=== PATIENT | male | born 1980 | race Caucasian/White ===

== ENCOUNTER 2018-06-26 07:30 | Inpatient (IN) ==
[2018-06-26] MEDS ORDERED: Metoprolol Tartrate 25 MG Tablet PO SCH (09:30)
[2018-06-26] MEDS ORDERED: Chlorhexidine Gluconate 2% 1 Pack (2 Cloths) TOPICAL SCH (09:30)
[2018-06-26] MEDS ORDERED: Chlorhexidine 4% Topical 120 APPLIC/120 ML Bottle TOPICAL SCH (09:45)
[2018-06-26] MEDS ORDERED: Sodium Chlor 0.9% Inj 500 ML IV.SIG SCH (10:00)
[2018-06-26] MEDS ORDERED: Dexmedetomidine Inj 200 MCG/2 ML Vial ONE ×2 (11:52→12:02)
[2018-06-26] MEDS ORDERED: Propofol Inj 500 MG/50 ML Vial ONE ×2 (11:53→12:01)
[2018-06-26] MEDS ORDERED: Phenylephrine/NS 1000 MCG/10ML Syringe IV.PUSH ONE (12:00)
[2018-06-26] MEDS ORDERED: Lidocaine 1%/Epinephrine 1:100,000 Inj 20 ML Vial ONE (12:04)
[2018-06-26] MEDS ORDERED: Sodium Chlor 0.9% Inj 50 ML ONE (12:09)
[2018-06-26] MEDS ORDERED: Sodium Chlor 0.9% Inj 100 ML ONE (12:12)
[2018-06-26] MEDS ORDERED: Sodium Chlor 0.9% Inj 250 ML ONE (12:37)
[2018-06-26] MEDS ORDERED: Betamethasone Sod Phos/Acetate Inj 30 MG/5 ML Vial IM ONE (13:06)
[2018-06-26] MEDS ORDERED: Gelatin Size 100 Topical Foam ONE (13:06)
[2018-06-26] MEDS ORDERED: Bupivacaine/Epinephrine Inj 0.25% 50 ML Vial ONE (13:07)
--- NOTE | 2018-06-26 13:28 | P.OP ---
- Preoperative Diagnosis (1) Hypospadias, balanic (2) Meatal stenosis - Postoperative Diagnosis (1) Hypospadias, balanic (2) Meatal stenosis Date of procedure: 06/26/18 Procedure: Urethral dilatation with difficult Mcgill placement Anesthesia: NADEEM Surgeon: Shai Souza DO Operation and Findings: 38-year-old male who elected to undergo laminectomy. Staff is having difficulty placing a Mcgill catheter. The patient was under general anesthesia and the meatus was prepped and draped in usual sterile fashion. Upon inspection , there was a hypospadias identified located just below the glans. A 18 Mexican urethral sound was passed in through the opening. A 14 Mexican coud catheter was inserted through the hypospadias and the catheter slid in easily. Clear urine drained and the balloon was inflated. The patient tolerated the procedure well. The catheter stay in 1-2 days after surgery.
[2018-06-26] MEDS ORDERED: fentaNYL Citrate Inj 100 MCG/2 ML Ampul ONE ×3 (17:12→19:40)
[2018-06-26] MEDS ORDERED: Post-op Orders (for Pharmacy) OTHER STA (19:03)
[2018-06-26] MEDS ORDERED: Bisacodyl 10 MG Supp RECTAL PRN (19:03)
[2018-06-26] MEDS ORDERED: Morphine Inj 4 MG/ML Vial IV.SIG ONE (19:03)
[2018-06-26] MEDS ORDERED: Naloxone Inj 0.4 MG/ML Vial IV.PUSH PRN (19:03)
[2018-06-26] MEDS ORDERED: Morphine Inj 30 MG/30 ML PCA.VIAL PCA PRN (19:03)
--- NOTE | 2018-06-26 19:03 | P.BOP ---
Date of procedure: 06/26/18 Procedure: L5-S1 laminectomy, facetectomy, foramintomy L5-S1 TLIF and posterolateral fusion L5-S1 instrumented fusion Implants: Depuy Anesthesia: GETA Surgeon: Amanda Avila MD Estimated blood loss (mL): 400 Pathology: none sent Condition: stable Disposition: PACU
--- NOTE | 2018-06-26 19:12 | XR ---
EXAM DATE: 06/26/2018 7:00 PM EDT AGE/SEX: 38 years / Male INDICATIONS: L5-S1 LAMINECTOMY AND FUSION. CLINICAL DATA: This is the patient's initial encounter. Patient reports that signs and symptoms have been present for 1 day and indicates a pain score of Nonresponsive. MEDICAL/SURGICAL HISTORY: None. None. COMPARISON: [facility], MR LUMBAR SPINE W/O CONTRAST, 03/06/2018. . FINDINGS: AP and lateral views of the lower lumbar spine were obtained using a matrix camera demonstrate the pa tient is status post fusion at the L5-S1 level with bilateral pedicle screws and posterior fixation r ods. There is a metal cage in the interspace. The study is labeled assuming 5 nonrib-bearing lumbar-t ype vertebra. CONCLUSION: Status post fusion at the L5-S1 level. Electronically signed by: Bolivar Sanchez MD 06/26/2018 7:11 PM EDT
[2018-06-26] MEDS ORDERED: *morphine SULFATE 4 MG/ML PERIprocedure ONLY ONE (20:13)
[2018-06-26] MEDS: Multivitamin/Minerals Therapeutic Tablet PO SCH (22:31)
[2018-06-26] MEDS: Senna/Docusate Sodium 8.6/50 MG Tablet PO SCH (22:31)
[2018-06-26] MEDS ORDERED: oxyCODONE/Acetaminophen 10/325 Tablet PO ONE (22:44)
[2018-06-27] MEDS ORDERED: Morphine Inj 4 MG/ML Vial IV.PUSH PRN (07:21)
[2018-06-27] MEDS: oxyCODONE/Acetaminophen 10/325 Tablet PO PRN ×3 (07:33→21:10)
--- NOTE | 2018-06-27 07:41 | P.PNOP ---
Subjective Interval history: Patient resting comfortably this morning. States his pain is relatively well controlled. Physical Exam Vital signs: Vital Signs 06/26/18 09:28 06/26/18 19:23 06/26/18 19:30 Temperature 98.8 F 97.2 F L Pulse Rate 73 78 73 Respiratory Rate 16 15 12 Blood Pressure 110/65 106/56 L 117/58 L Pulse Oximetry 95 97 98 06/26/18 19:45 06/26/18 20:00 06/26/18 20:30 Temperature 98.2 F Pulse Rate 76 69 71 Respiratory Rate 11 L 12 12 Blood Pressure 111/58 L 115/58 L 112/58 L Pulse Oximetry 99 99 95 06/26/18 21:30 06/26/18 22:00 06/27/18 00:00 Temperature 97.5 F L 97.6 F Pulse Rate 88 66 Respiratory Rate 20 20 Blood Pressure 126/69 99/52 L Pulse Oximetry 96 95 95 06/27/18 04:00 06/27/18 06:24 Temperature 97.4 F L Pulse Rate 88 Respiratory Rate 20 Blood Pressure 106/54 L Pulse Oximetry 94 L 96 Intake & Output 06/26/18 06/27/18 06/27/18 18:59 06:59 18:59 Intake Total 4600 / 4600 Output Total 475 / 475 3325 / 3325 Balance -475 / -475 1275 / 1275 Weight 102.9 kg 102.9 kg Intake: IV 200 / 200 Ancef Inj 1,000 MG In NS Inj 200 / 200 100 ML @ 200 mls/hr IV.SIG Q6H [facility] Rx#:[id number] Oral 400 / 400 Anesthesia Amount 4000 / 4000 Output: Estimated Blood Loss 400 / 400 Urine Amount (Catheter) 475 / 475 2925 / 2925 Coude 475 / 475 2925 / 2925 Wound Drainage 0 / 0 Lower Back Hemovac 0 / 0 Other: Date of Last Bowel Movement 06/25/18 Weight On Admission 102.9 kg Narrative: Awake, alert, no acute distress Dressing and drain in place over the lower back. Bilateral lower extremities: 5 out of 5 strength throughout quadriceps, hamstrings, gastroc, tib ant, EHL and FHL. Sensation appears grossly intact. Brisk cap refill. Negative Homans. - Urinary Catheter Management Coude Cath placed during this visit: yes, but has since been removed by the nurse Reason for continuing: Decision to DC catheter Insertion date: 06/26/18 Insertion time: 13:30 Removal date: 06/27/18 Removal time: 06:24 Results - Imaging Impressions Lumbar Spine X-Ray 06/26/18 00:00 CONCLUSION: Status post fusion at the L5-S1 level. Assessment and Plan - Assessment and Plan 38-year-old male, POD#1 s/p L5-S1 laminectomy with transforaminal interbody and posterior lateral instrumented fusion 1. Mobilization with physical therapy. Patient may be weightbearing as tolerated although he should avoid bending, lifting, twisting. 2. DVT prophylaxis with SCDs and MONSTER hose along with early mobilization. No chemical anticoagulation as patient had recent spine surgery 3. We'll discontinue [employer] this morning and restart home extended release morphine. Will add Percocet and morphine IV when necessary 4. Mcgill catheter removed this morning. 5. Hemovac may be removed later today provided output remains less than 30. Dressing may be changed at the same time. Incision should be cleaned with Betadine then Xeroform, 4 x 4's and Tegaderms should be placed over the incision. 6. Discharge planning. Patient will likely be able to be discharged home tomorrow pending progress physical therapy
[2018-06-27] MEDS: Baclofen 10 MG Tablet PO SCH ×3 (08:39→17:00)
[2018-06-27] MEDS: Senna/Docusate Sodium 8.6/50 MG Tablet PO SCH ×2 (08:40→21:04)
[2018-06-27] MEDS: Sertraline 100 MG Tablet PO SCH (08:40)
[2018-06-27] MEDS: Morphine Sulfate 30 MG SR Tablet PO SCH ×2 (08:40→17:00)
[2018-06-27] MEDS: Multivitamin/Minerals Therapeutic Tablet PO SCH ×2 (08:40→21:04)
[2018-06-27] MEDS ORDERED: ESOMEPRAZOLE 40 MG PO SCH (09:00)
--- NOTE | 2018-06-27 14:24 | P.CONIM ---
History of Present Illness Service: Medicine Consult date: 06/27/18 Requesting Physician: Amanda Avila Reason for Consult: medical management Primary Care Provider: Vitor Montiel Family Provider: Vitor Montiel Chief Complaint: medical management History of Present Illness: 38 y/o M with hx of PTSH and T2DM now controlled after gastric by pass who p/w laminectomy due to chronic lower back pain. [facility] consulted for medical management. patient has no complaints. he stated pain controlled and that he was walking in the hallway. He has a service dog on his bed. Review of Systems Constitutional: Reports fatigue, Reports weakness, Denies anorexia, Denies body ache(s), Denies chills, Denies daytime sleepiness, Denies excessive sweating, Denies fever(s), Denies headache(s), Denies increased appetite, Denies lack of energy, Denies malaise, Denies night sweats, Denies weight gain, Denies weight loss, Denies other Eyes: Denies blind spots, Denies blurry vision, Denies bulging eyes, Denies change in vision, Denies double vision, Denies discharge, Denies dry eyes, Denies floaters, Denies irritation, Denies itchy eyes, Denies loss of vision, Denies pain, Denies requires corrective lenses, Denies sensitivity to light, Denies other Ears, Nose, Mouth, and Throat: Denies abnormal hearing, Denies bleeding gums, Denies bad breath, Denies change in voice, Denies dental pain, Denies difficulty swallowing, Denies dizziness, Denies dry mouth, Denies ear discharge , Denies ear pain, Denies facial pain, Denies headache(s), Denies hearing loss, Denies hoarseness, Denies lip swelling, Denies nosebleed, Denies mouth lesions, Denies mouth pain, Denies nasal congestion, Denies nasal discharge, Denies nasal obstruction, Denies nasal trauma, Denies neck lump, Denies neck pain, Denies nose pain, Denies pain with swallowing, Denies poor balance, Denies post nasal drip, Denies ringing in the ears, Denies sinus pain, Denies sinus pressure , Denies sore throat, Denies throat swelling, Denies tongue swelling, Denies other Cardiovascular: Denies chest pain, Denies chest pain at rest, Denies chest pain with activity, Denies excessive sweating, Denies fainting, Denies fast heart rate, Denies foot swelling, Denies generalized swelling, Denies irregular heart rhythm, Denies leg pain with activity, Denies leg sores, Denies leg swelling, Denies lightheadedness, Denies radiating jaw, neck or arm pain, Denies rapid, pounding, or irregular heartbeat, Denies shortness of breath, Denies shortness of breath with activity, Denies shortness of breath when lying down, Denies shortness of breath causing sudden awakening, Denies slow heart rate, Denies other Respiratory: Denies change in phlegm color, Denies chest congestion, Denies cough, Denies coughing up blood, Denies excessive phlegm production, Denies pain on inspiration, Denies pain with cough, Denies shortness of breath, Denies shortness of breath with activity, Denies snoring, Denies stridor, Denies wheezing, Denies other Gastrointestinal: Denies abdominal pain, Denies belching, Denies black, tarry stools, Denies bloating, Denies bright, red blood in stools, Denies change in bowel habits, Denies constant urge to pass stool, Denies change in stools, Denies coffee ground vomit, Denies constipation, Denies cramping, Denies difficulty swallowing, Denies excessive passing of gas, Denies feeling full early, Denies heartburn, Denies incontinent of stools, Denies loose stools, Denies nausea, Denies pain with swallowing, Denies vomiting, Denies vomiting blood, Denies other Genitourinary: Denies blood in semen, Denies blood in urine, Denies decreased urination, Denies difficulty urinating, Denies difficulty with ejaculations, Denies erectile dysfunction, Denies genital lesions, Denies genital pain, Denies painful urination, Denies side pain, Denies frequent nighttime urination , Denies painful ejaculations, Denies penile discharge, Denies scrotal swelling , Denies testicle lump, Denies testicle pain, Denies urinary frequency, Denies urinary hesitancy, Denies urinary incontinence, Denies urinary urgency, Denies other Musculoskeletal: Denies abnormal walking, Denies back pain, Denies body aches, Denies decreased muscle mass, Denies deformity, Denies joint pain, Denies joint swelling, Denies limited joint movement, Denies loss of height, Denies muscle cramps, Denies muscle weakness, Denies neck pain, Denies numbness, Denies radiating pain into limb, Denies stiffness, Denies tingling, Denies other Skin/Breast: Denies acne, Denies bleeding lesions, Denies boil, Denies breast swelling, Denies breast skin changes, Denies breast pain, Denies breast lump, Denies change in breast shape, Denies change in hair, Denies change in skin color, Denies changing lesions, Denies dry skin, Denies excessive hair growth, Denies hair loss, Denies itching, Denies lesions, Denies nail changes, Denies new lesions, Denies nipple discharge, Denies non-healing lesions, Denies redness , Denies sensitivity to light, Denies rash, Denies skin pain, Denies skin ulcer , Denies sores, Denies stretch barker, Denies unusual bruising, Denies wounds, Denies yellowing of the skin, Denies other Neurologic: Denies abnormal hearing, Denies abnormal movements, Denies abnormal speech, Denies abnormal walking, Denies behavioral changes, Denies burning sensations, Denies confusion, Denies dizziness, Denies fainting, Denies frequent falls, Denies headache(s), Denies lack of coordination, Denies localized weakness, Denies loss of vision, Denies memory loss, Denies numbness, Denies other visual disturbances, Denies radiating pain, Denies restless legs, Denies convulsions, Denies seizure-like activity, Denies sensory deficit, Denies tingling, Denies tingling/numbness/burning sensations, Denies tremor(s), Denies unsteadiness, Denies weakness, Denies other Psychiatric: Denies abnormal sleep pattern, Denies anxiety, Denies behavioral changes, Denies change in appetite, Denies change in sex drive, Denies confusion , Denies depression, Denies difficulty concentrating, Denies hearing things others do not hear, Denies hopelessness, Denies irritability, Denies lack of enjoyment, Denies memory loss, Denies mood swings, Denies panic attacks, Denies paranoia, Denies seeing things others do not see, Denies sensing things others do not sense, Denies tactile hallucinations, Denies thoughts of hurting/killing others, Denies thoughts of hurting/killing yourself, Denies other Endocrine: Denies cold intolerance, Denies excessive sweating, Denies flushing, Denies heat intolerance, Denies increased hunger, Denies increased thirst, Denies increased urination, Denies rapid, pounding, or irregular heartbeat, Denies other Hematologic/Lymphatic: Denies easy bleeding, Denies easy bruising, Denies enlarged lymph nodes, Denies other Allergic/Immunologic: Denies GI upset with certain foods, Denies hives, Denies itchy eyes, Denies lip swelling, Denies seasonal runny nose, Denies throat swelling, Denies tongue swelling, Denies wheezing, Denies other PMFSH - History History Provided By: Patient, Significant Other - Medical History Medical History: Medical History (Last Reviewed 06/27/18 @ 11:32 by Amy Calixto, PT) Back pain Diabetes GERD (gastroesophageal reflux disease) History of anesthesia reaction Hx deployment Hx of injury PTSD (post-traumatic stress disorder) Pain Post traumatic stress disorder due to war, terrorism, or hostility Wears eyeglasses - Surgical History Surgical History: Surgical History (Last Reviewed 06/27/18 @ 11:32 by Amy Calixto, PT) History of Cesar-en-Y gastric bypass History of cholecystectomy History of total right hip replacement Hx of decompression of ulnar nerve - Tobacco History Second Hand Smoke Exposure: No Tobacco Use In Past 30 Days: No Smoking Status: Never smoker - Alcohol History How Often Do You Have a Drink Containing Alcohol: Monthly or less - Substance Use History Substance History: Active 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 Route Used: Inhalation Reason for Use: Calm Down, Sleep - Travel History Recent Travel in the [place] Within the Last 8 Weeks: No Recent Travel Out of the Country Within the Last 8 Weeks: No - Immunization History Tetanus Immunization: <5 Years Hx Influenza Vaccine This Season: Yes Medications and Allergies Active Medications: Active Medications Al Hydroxide/Mg Hydroxide (Milk Of Magnesia Liq) 30 ml PO BID PRN PRN Reason: Mild Constipation Last Admin: 06/26/18 22:31 Dose: 30 ml Baclofen (Lioresal) 10 mg PO TID [facility] Last Admin: 06/27/18 12:53 Dose: 10 mg Bisacodyl (Dulcolax Supp) 10 mg RECTAL DAILY PRN PRN Reason: SEVERE CONSITIPATION Chlorhexidine Gluconate (Chlorhexidine 2% Cloth) 3 pack TOPICAL CARE MANAGEMENT SPECIALIST [facility] Stop: 06/29/18 09:29 Last Admin: 06/26/18 09:45 Dose: 3 pack Chlorhexidine Gluconate (Hibiclens 4% Topical) 1 applicatio TOPICAL ONCE [facility] Stop: 06/30/18 09:44 Last Admin: 06/26/18 09:45 Dose: 1 applicatio Diphenhydramine HCl (Benadryl) 25 mg PO Q6H PRN PRN Reason: ITCHING Lactated Ringer's (Lr 1000 Ml Inj) 1,000 mls @ 30 mls/hr IV.SIG .Q24H [facility] Stop: 06/29/18 09:29 Last Admin: 06/27/18 10:31 Dose: Not Given Sodium Chloride (Ns Inj) 500 mls @ 30 mls/hr IV.SIG .Q10H [facility] Stop: 06/29/18 09:29 Lactulose (Lactulose Liq) 30 ml PO DAILY PRN PRN Reason: SEVERE CONSITIPATION Metoprolol Tartrate (Lopressor) 25 mg PO CARE MANAGEMENT SPECIALIST [facility] Stop: 06/29/18 09:29 Last Admin: 06/26/18 09:49 Dose: Not Given Miscellaneous Information ([facility]) 1 each OTHER UNSCH PRN PRN Reason: SEE LABEL COMMENTS Stop: 06/27/18 19:23 Morphine Sulfate (Oramorph Sr) 30 mg PO Q8H [facility] Last Admin: 06/27/18 08:40 Dose: 30 mg Morphine Sulfate (Morphine Inj) 2 mg IV.PUSH Q3H PRN PRN Reason: BREAKTHROUGH PAIN Multivitamins/Minerals (Theragran-M) 1 tab PO BID [facility] Stop: 08/25/18 20:59 Last Admin: 06/27/18 08:40 Dose: 1 tab Naloxone HCl (Narcan Inj) 0.4 mg IV.PUSH PRN PRN PRN Reason: Resp rate < 10 Ondansetron HCl (Zofran Inj) 4 mg IV.PUSH Q6H PRN PRN Reason: NAUSEA OR VOMITING Oxycodone/Acetaminophen (Percocet 10/325 Mg) 1 tab PO Q4H PRN PRN Reason: PAIN SCALE 6 TO 10 Last Admin: 06/27/18 12:53 Dose: 1 tab Oxycodone/Acetaminophen (Percocet 5/325 Mg) 1 tab PO Q4H PRN PRN Reason: PAIN SCALE 1 TO 5 Povidone Iodine (Betadine 5% Antisepsis Kit) 1 applicatio EACH NARE CARE MANAGEMENT SPECIALIST [facility] Stop: 06/29/18 09:29 Last Admin: 06/26/18 09:45 Dose: 1 applicatio Senna/Docusate Sodium (Diana-Colace) 1 tab PO BID [facility] Last Admin: 06/27/18 08:40 Dose: 1 tab Sennosides (Senokot) 17.2 mg PO BID PRN PRN Reason: Moderate Constipation Sertraline HCl (Zoloft) 100 mg PO DAILY [facility] Last Admin: 06/27/18 08:40 Dose: 100 mg Sodium Chloride (Ns Flush) 2 ml IV.FLUSH PRN PRN PRN Reason: FLUSH AFTER USING IV ACCESS Sodium Chloride (Ns Flush) 2 ml IV.FLUSH BID [facility] Last Admin: 06/27/18 08:40 Dose: Not Given Allergies Allergy/AdvReac Type Severity Reaction Status Date / Time gluten Allergy Intermediate Vomiting Verified 06/26/18 22:03 VITAMIN C Allergy Severe Blister Uncoded 06/26/18 22:03 Home Medications Medication Instructions Recorded Confirmed Type baclofen 10 mg PO TID 06/22/18 06/26/18 History esomeprazole magnesium [Nexium] 40 mg PO DAILY 06/22/18 06/26/18 History hydrocodone-acetaminophen 1 tab PO TID PRN 06/22/18 06/26/18 History morphine 30 mg PO Q8H 06/22/18 06/26/18 History sertraline [Zoloft] 100 mg PO DAILY 06/22/18 06/26/18 History Exam Vital signs: Vital Signs 06/26/18 19:23 06/26/18 19:30 06/26/18 19:45 Temperature 97.2 F L Pulse Rate 78 73 76 Respiratory Rate 15 12 11 L Blood Pressure 106/56 L 117/58 L 111/58 L Pulse Oximetry 97 98 99 06/26/18 20:00 06/26/18 20:30 06/26/18 21:30 Temperature 98.2 F 97.5 F L Pulse Rate 69 71 88 Respiratory Rate 12 12 20 Blood Pressure 115/58 L 112/58 L 126/69 Pulse Oximetry 99 95 96 06/26/18 22:00 06/27/18 00:00 06/27/18 04:00 Temperature 97.6 F 97.4 F L Pulse Rate 66 88 Respiratory Rate 20 20 Blood Pressure 99/52 L 106/54 L Pulse Oximetry 95 95 94 L 06/27/18 06:24 06/27/18 08:00 06/27/18 09:10 Temperature 98.2 F Pulse Rate 64 Respiratory Rate 12 18 Blood Pressure 96/51 L Pulse Oximetry 96 93 L 06/27/18 12:00 06/27/18 13:23 Temperature 97.7 F Pulse Rate 80 Respiratory Rate 16 18 Blood Pressure 98/54 L Pulse Oximetry 93 L Intake & Output 06/26/18 06/27/18 06/27/18 18:59 06:59 18:59 Intake Total 4600 / 4600 100 / 100 Output Total 475 / 475 3325 / 3325 Balance -475 / -475 1275 / 1275 100 / 100 Weight 102.9 kg 102.9 kg Intake: IV 200 / 200 100 / 100 Ancef Inj 1,000 MG In NS Inj 200 / 200 100 / 100 100 ML @ 200 mls/hr IV.SIG Q6H [facility] Rx#:[id number] Oral 400 / 400 Anesthesia Amount 4000 / 4000 Output: Estimated Blood Loss 400 / 400 Urine Amount (Catheter) 475 / 475 2925 / 2925 Coude 475 / 475 2925 / 2925 Wound Drainage 0 / 0 Lower Back Hemovac 0 / 0 Other: Date of Last Bowel Movement 06/25/18 06/25/18 Weight On Admission 102.9 kg - Constitutional no acute distress - Routine HEENT Exam Head: Present: normocephalic, atraumatic Eye: Present: EOMI, PERRL ENT: Present: mucous membranes moist, nares patent, external ear normal - Routine Neck Exam Present: supple, full ROM - Routine Respiratory Exam Present: CTA bilaterally - Routine Cardiovascular Exam Present: RRR, S1, S2 - Routine Abdominal Exam Present: soft, normoactive bowel sounds Comments: no TTP. negative peritoneal signs. - Routine Extremities Exam Present: edema - Routine Skin Exam Present: intact - Routine Neurological Exam Present: alert, oriented X3, moving all extremities Results - Imaging Impressions Lumbar Spine X-Ray 06/26/18 00:00 CONCLUSION: Status post fusion at the L5-S1 level. Assessment and Plan - Plan 38-year-old male with hx of chronic lower back pain who p/w for elective L5-S1 laminectomy with transforaminal interbody and posterior lateral instrumented fusion POD #1 -management per surgeon. -PT consulted. may be may be weightbearing as tolerated although he should avoid bending, lifting, twisting. T2DM -diet controlled after gastric bypass surgery. PTSD -patient has service dog GERD -continue home medication. DVT prophylaxis with SCDs and MONSTER hose along with early mobilization. No chemical anticoagulation as patient had recent spine surgery Discharge Planning: possible discharge home per surgeon. patient is medically cleared for discharged.
[2018-06-28] MEDS: Morphine Sulfate 30 MG SR Tablet PO SCH ×2 (00:07→08:45)
[2018-06-28] MEDS: oxyCODONE/Acetaminophen 10/325 Tablet PO PRN ×2 (01:21→07:23)
--- NOTE | 2018-06-28 07:16 | P.PNOP ---
Subjective Interval history: Patient resting comfortably this morning. States he was able to walk 2 laps around the floor. He does have mild back ache although his right leg radiculopathy is improving Physical Exam Vital signs: Vital Signs 06/27/18 08:00 06/27/18 09:10 06/27/18 12:00 Temperature 98.2 F 97.7 F Pulse Rate 64 80 Respiratory Rate 12 18 16 Blood Pressure 96/51 L 98/54 L Pulse Oximetry 93 L 93 L 06/27/18 13:23 06/27/18 16:00 06/27/18 17:30 Temperature 98.6 F Pulse Rate 96 H Respiratory Rate 18 16 18 Blood Pressure 106/55 L Pulse Oximetry 94 L 06/27/18 20:00 06/28/18 00:00 06/28/18 03:30 Temperature 97.2 F L 97.8 F Pulse Rate 74 69 Respiratory Rate 20 20 15 Blood Pressure 111/55 L 105/50 L Pulse Oximetry 99 97 06/28/18 04:00 Temperature 97.8 F Pulse Rate 63 Respiratory Rate 20 Blood Pressure 104/52 L Pulse Oximetry 95 Intake & Output 06/27/18 06/28/18 06/28/18 18:59 06:59 18:59 Intake Total 1400 / 1400 600 / 600 Output Total 800 / 800 Balance 600 / 600 600 / 600 Weight 102.9 kg Intake: IV 800 / 800 LR 1000 mL Inj 1,000 ML @ 30 700 / 700 mls/hr IV.SIG .Q24H [facility] Rx#: [id number] Ancef Inj 1,000 MG In NS Inj 100 / 100 100 ML @ 200 mls/hr IV.SIG Q6H [facility] Rx#:[id number] Oral 600 / 600 600 / 600 Output: Urine 800 / 800 Other: # Voids 5 Date of Last Bowel Movement 06/25/18 06/25/18 # Bowel Movements 2 Narrative: Awake, alert, no acute distress Back: Dressing in place, drain has been removed Bilateral lower extremities: 5 out of 5 strength throughout. Sensation appears grossly intact. Negative Homans. Brisk cap refill. - Urinary Catheter Management Coude Cath placed during this visit: yes, but has since been removed by the nurse Reason for continuing: Decision to DC catheter Insertion date: 06/26/18 Insertion time: 13:30 Removal date: 06/27/18 Removal time: 06:24 Assessment and Plan - Assessment and Plan 38-year-old male, POD#2 s/p L5-S1 laminectomy with transforaminal interbody and posterior lateral instrumented fusion 1. Mobilization with physical therapy. Patient may be weightbearing as tolerated although he should avoid bending, lifting, twisting. 2. DVT prophylaxis with SCDs and MONSTER hose along with early mobilization. No chemical anticoagulation as patient had recent spine surgery 3. Patient is on his home morphine extended release and I will give him a prescription for Percocet for acute postop surgical pain. 4. Mcgill catheter removed and patient is currently urinating well 5. Hemovac has been removed 6. Discharge home this morning
[2018-06-28 08:29] VITALS: BP 118/65; PULSE 69; RESP 18; TEMP 98; O2SAT 96
[2018-06-28] MEDS: Senna/Docusate Sodium 8.6/50 MG Tablet PO SCH (08:45)
[2018-06-28] MEDS: Sertraline 100 MG Tablet PO SCH (08:45)
[2018-06-28] MEDS: Multivitamin/Minerals Therapeutic Tablet PO SCH (08:46)
[2018-06-28] MEDS: Baclofen 10 MG Tablet PO SCH (08:46)
--- NOTE | 2018-06-28 13:27 | P.OP ---
Date of procedure: 06/26/18 Procedure: 1. L5-S1 laminectomy, facetectomy, and foramintomy for decompression 2. Posterior lumbar segmental instrumentation L5-S1 3. Combined posterolateral and transforaminal interbody fusion L5-S1 with placement of interbody cage, local autograft, and allograft Implants: Depuy Anesthesia: JESSAA Surgeon: Amanda Avila MD Estimated blood loss (mL): 400 Pathology: none sent Operation and Findings: Indications for procedure: Patient is a 38-year-old gentleman with several year history of low back pain with right leg radiculopathy and associated weakness. Patient was found to have bony right-sided L5-S1 foraminal stenosis with significant nerve root compromise. Plan is for a posterior lumbar decompression with instrumented fusion. Risks, benefits, alternative treatment options were discussed with the patient. At this time the patient wished to proceed with the above-mentioned procedure. Description of procedure: Patient was brought back to the operating room where general anesthesia then ensued. Neuro monitoring leads were placed along with a Mcgill catheter by urology. Patient was then carefully positioned prone on the operating room table with all bony prominences well padded. Patient was then prepped and draped in standard sterile fashion. Preoperative antibiotics were given within 1 hour of incision. A timeout was performed to identify the correct patient, side, site and procedure to be performed. C-arm views were used to localize the site for incision and a central longitudinal incision was made directly overlying the L5-S1 level. Sharp dissection was made through skin and subcutaneous tissue. The fascia was cleared and incised directly over the spinous processes. Dissection was then carried out over the posterior aspect of the spine including the spinous process, lamina, pars, facet joints and transverse processes and sacral ala at L5-S1. Attention was then turned towards pedicle screw placement. Pedicle screws were placed bilaterally at L5 and S1. Screws were placed under use of C-arm guidance. A automatic pilot mechanic hole was created with a bur followed by a pedicle probe. A ball-tipped probe was used to confirm interosseous positioning along with C-arm. This was subsequently tapped, probed again and then appropriate length screws were placed. AP and lateral radiographs demonstrated the screws appeared appropriately positioned. The screws were then stimulated, all a threshold greater than 17. Attention was then turned towards decompression. A central decompression was initially carried out with the use of a high-speed bur, rongeur and Kerrisons at L5 and S1. The left lateral recess was then decompressed by undercutting the medial aspect of the superior articular facet and removing all hypertrophic capsular ligamentous tissue. At this time the right L5-S1 facet was removed with the use of a high-speed bur and rongeur. This was completed with the use of Kerrisons with careful attention paid to protecting decompressed exiting L5 nerve root on the right. A scrotal screw distractor was then placed on the right side at L5 and S1 to allow easier access to the L5-S1 disc space. The thecal sac was mobilized towards the left and hemostasis achieved with bipolar electrocautery and hemostatic agents. An annulotomy was performed at the L5-S1 disc space and the disc removed with the use of pituitaries and curettes. The disc space was then subsequently shaved up to a size 11. Again, disc material was removed with the use of curettes and pituitaries. This was performed until all cartilaginous material was removed from the disc space and there was healthy bleeding bone. The disc space was thoroughly irrigated. Local autograft was then placed and packed into the anterior aspect of the disc space. A cage was then filled on the back table with local autograft mixed with demineralized bone matrix. This was then placed into the disc space an advanced to appropriate position on AP and lateral radiographs. Distraction was then released. At this time attention was turned to decompressing bilateral foramen. The right side was noted to be free of any compression and the exiting L5 nerve root was easily visualized. A foraminotomy was carried out on the left side to assure that the exiting L5 nerve root was also free. This was performed such that a [place] 3 could be passed out the foramen easily. Premeasured and precut rods were then placed between L5 and S1 screws bilaterally with set screws being placed and final tightened. X-ray showed all hardware appeared to be well positioned on both AP and lateral radiographs. Copious irrigation was then performed. The transverse process at L5 and sacral ala were then decorticated with a bur and local autograft and demineralized bone matrix then placed in the posterolateral gutter. A deep drain was then placed through a lateral stab incision. Vancomycin powder was then placed into the wound. The fascia was then closed with #0 Vicryl suture. The subcutaneous tissue was closed with 2-0 Vicryl sutures and the skin closed with nylon. Sterile dressings were applied and patient was carefully transferred supine onto the hospital bed. Patient was then awoken from general anesthesia without complication. It should be noted that the patient remained hemodynamically stable throughout the entire procedure and that there were no adverse monitoring changes.
== END 2018-06-28 10:13 | disposition home or self-care (01) ==
LOC: HSDI 08:45 → N06 21:07
PROVIDERS: ADMIT Orthopaedic Surgery Orthopaedic Surgery of the Spine; ATTEND Orthopaedic Surgery Orthopaedic Surgery of the Spine